=== PATIENT | female | born 1980 | race Caucasian/White ===

== ENCOUNTER 2019-05-30 12:29 | Outpatient (CLI) | payer OTHER, SELFPAY ==
[2019-05-30 12:52] LABS: Basophils Absolute Auto 0.1 K/mm3 (0.0-0.1); Basophils Percent Auto 0.4 % (0.2-1.2); Eosinophils Absolute Auto 0.2 K/mm3 (0-0.3); Eosinophils Percent Auto 1.4 % (0-4.4); Hematocrit 39.5 % (37.0-47.0); Hemoglobin 12.5 g/dL (12.0-15.0); Immature Granulocyte Absolute 0.03 K/mm3 (0.00-0.031); Immature Granulocyte Percent A 0.2 % (0-0.5); Lymphocytes Absolute Auto 3.16 K/mm3 (0.9-3.2); Lymphocytes Percent Auto 25.2 % (18.3-44.2); Mean Corpuscular HGB Conc 31.6 g/dl (32-36); Mean Corpuscular Hemoglobin 28.5 pg (26-34); Mean Platelet Volume 8.8 fl (7.4-10.4); Monocytes Absolute Auto 0.7 K/mm3 (0.1-0.6); Monocytes Percent Auto 5.7 % (2.6-8.5); Neutrophils Absolute Auto 8.4 K/mm3 (1.3-6.7); Neutrophils Percent Auto 67.1 % (45.5-73.1); Platelet Count Result 696 k/mm3 (150-375); Red Blood Count 4.39 M/mm3 (4.2-5.4); Red Cell Distribution Width 14.6 % (11.5-14.5); White Blood Count 12.5 K/mm3 (4.5-10.0)
[2019-05-30 12:55] LABS: Blood Urea Nitrogen 12 mg/dL (8-26); Carbon Dioxide 28 mmol/L (22-30); Chloride 106 mmol/L (98-109); Estimated Glomerular Filt Rate > 60; Glucose 101 mg/dL (70-105); Potassium 3.8 mmol/L (3.5-4.9); Sodium 140 mmol/L (138-146)
[2019-05-30 16:57] LABS: Alanine Aminotransferase 13 U/L (4-35); Alkaline Phosphatase 113 U/L (38-126); Aspartate Amino Transferase 16 U/L (14-36); Bilirubin,Total 0.3 mg/dL (0.2-1.3); Blood Urea Nitrogen 13 mg/dL (7-17); Calcium 9.4 mg/dL (8.4-10.2); Carbon Dioxide 25 mmol/L (22-30); Chloride 105 mmol/L (98-107); Estimated Glomerular Filt Rate > 60; Glucose 101 mg/dL (65-105); Potassium 4.3 mmol/L (3.4-5.0); Sodium 139 mmol/L (137-145)
== END 2019-05-30 12:30 | disposition home or self-care (01) ==
PROVIDERS: PCP Family Medicine; Visit Provider Internal Medicine Hematology & Oncology
DX: R79.89 Other specified abnormal findings of blood chemistry (principal); Z90.81 Acquired absence of spleen
CPT/HCPCS: 36415; 80048; 80053; 85025

== ENCOUNTER 2019-08-23 08:35 | Outpatient (CLI) | payer OTHER, SELFPAY ==
[2019-08-23 08:49] LABS: Basophils Absolute Auto 0.1 K/mm3 (0.0-0.1); Basophils Percent Auto 0.6 % (0.2-1.2); Eosinophils Absolute Auto 0.2 K/mm3 (0-0.3); Eosinophils Percent Auto 1.8 % (0-4.4); Hematocrit 41.5 % (37.0-47.0); Hemoglobin 13.2 g/dL (12.0-15.0); Immature Granulocyte Absolute 0.03 K/mm3 (0.00-0.031); Immature Granulocyte Percent A 0.3 % (0-0.5); Lymphocytes Absolute Auto 3.64 K/mm3 (0.9-3.2); Lymphocytes Percent Auto 34.8 % (18.3-44.2); Mean Corpuscular HGB Conc 31.8 g/dl (32-36); Mean Corpuscular Hemoglobin 28.4 pg (26-34); Mean Corpuscular Volume 89.2 fl (80-100); Monocytes Absolute Auto 1.1 K/mm3 (0.1-0.6); Neutrophils Absolute Auto 5.5 K/mm3 (1.3-6.7); Neutrophils Percent Auto 52.5 % (45.5-73.1); Platelet Count Result 653 k/mm3 (150-375); Red Blood Count 4.65 M/mm3 (4.2-5.4); Red Cell Distribution Width 14.7 % (11.5-14.5); White Blood Count 10.5 K/mm3 (4.5-10.0)
== END 2019-08-23 08:36 | disposition home or self-care (01) ==
PROVIDERS: PCP Family Medicine; Visit Provider Internal Medicine Hematology & Oncology
DX: D69.3 Immune thrombocytopenic purpura (principal)
CPT/HCPCS: 36415; 85025

== ENCOUNTER 2019-08-26 15:54 | Outpatient (CLI) | payer OTHER, SELFPAY ==
--- NOTE | ~2019-08-26 | MR_ITS ---
EXAMINATION: MR brain/brain stem wo/w con EXAM DATE: 08/26/2019 16:47 INDICATION: Frontal headaches, migraines with aura. TECHNIQUE: Magnetic resonance imaging (MRI) of the brain/brain stem obtained without contrast. Sagit ronda T1, axial diffusion, gradient echo (T2*), T1, T2, FLAIR sequences obtained. Patient was then inj ected with 15 cc intravenous Multihance contrast. Axial and coronal postcontrast T1 weighted sequence s obtained. There is no prior study for comparison. FINDINGS: There are no areas of restricted diffusion to suggest acute infarction. There is no acute hemorrhage seen on the T2*, a hemosiderin sensitive sequence. No intraparenchymal brain mass. The ve ntricles are normal in size. There are no extra-axial collections. Flow voids are seen in the cereb ral arteries on the T2-weighted sequences consistent with their expected patency. The orbits are unr emarkable. Soft tissue is unremarkable. There are no areas of abnormal enhancement on the postcont rast images. IMPRESSION: 1. Normal brain MRI examination. Reviewed, dictated and finalized at location A.
[2019-08-26 16:30] LABS: Estimated Glomerular Filt Rate 55
== END 2019-08-26 15:55 | disposition home or self-care (01) ==
PROVIDERS: PCP Family Medicine; Visit Provider Family Medicine
DX: R51 Headache (principal); R79.89 Other specified abnormal findings of blood chemistry
CPT/HCPCS: 36415; 70553; A9577

== ENCOUNTER 2019-09-03 09:17 | Outpatient (CLI) | payer OTHER, SELFPAY ==
[2019-09-03 09:37] LABS: Basophils Absolute Auto 0.1 K/mm3 (0.0-0.1); Basophils Percent Auto 0.7 % (0.2-1.2); Eosinophils Absolute Auto 0.1 K/mm3 (0-0.3); Eosinophils Percent Auto 1.7 % (0-4.4); Hematocrit 40.5 % (37.0-47.0); Hemoglobin 12.9 g/dL (12.0-15.0); Immature Granulocyte Absolute 0.01 K/mm3 (0.00-0.031); Immature Granulocyte Percent A 0.1 % (0-0.5); Lymphocytes Absolute Auto 3.07 K/mm3 (0.9-3.2); Lymphocytes Percent Auto 42.8 % (18.3-44.2); Mean Corpuscular HGB Conc 31.9 g/dl (32-36); Mean Corpuscular Hemoglobin 28.9 pg (26-34); Mean Corpuscular Volume 90.8 fl (80-100); Monocytes Absolute Auto 0.6 K/mm3 (0.1-0.6); Monocytes Percent Auto 8.9 % (2.6-8.5); Neutrophils Absolute Auto 3.3 K/mm3 (1.3-6.7); Neutrophils Percent Auto 45.8 % (45.5-73.1); Nucleated Red Blood Cells Perc 0.3 % (0.0-0.2); Platelet Count Result 640 k/mm3 (150-375); Red Blood Count 4.46 M/mm3 (4.2-5.4); Red Cell Distribution Width 14.6 % (11.5-14.5); White Blood Count 7.2 K/mm3 (4.5-10.0)
[2019-09-03 09:40] LABS: Blood Urea Nitrogen 10 mg/dL (8-26); Carbon Dioxide 24 mmol/L (22-30); Chloride 104 mmol/L (98-109); Estimated Glomerular Filt Rate > 60; Glucose 103 mg/dL (70-105); Potassium 4.2 mmol/L (3.5-4.9); Sodium 139 mmol/L (138-146)
[2019-09-03 12:06] LABS: Alanine Aminotransferase 18 U/L (4-35); Albumin Level 4.2 g/dL (3.5-5.1); Alkaline Phosphatase 91 U/L (38-126); Aspartate Amino Transferase 25 U/L (14-36); Bilirubin,Total 0.4 mg/dL (0.2-1.3); Blood Urea Nitrogen 11 mg/dL (7-17); Calcium 9.8 mg/dL (8.4-10.2); Carbon Dioxide 25 mmol/L (22-30); Chloride 105 mmol/L (98-107); Estimated Glomerular Filt Rate > 60; Glucose 108 mg/dL (65-105); Potassium 4.7 mmol/L (3.4-5.0); Sodium 137 mmol/L (137-145)
== END 2019-09-03 09:18 | disposition home or self-care (01) ==
PROVIDERS: PCP Family Medicine; Visit Provider Internal Medicine Hematology & Oncology
DX: R79.89 Other specified abnormal findings of blood chemistry (principal); Z90.81 Acquired absence of spleen
CPT/HCPCS: 36415; 80048; 80053; 85025

== ENCOUNTER 2019-09-30 09:50 | Outpatient (CLI) | payer OTHER, SELFPAY ==
[2019-09-30 10:02] LABS: Basophils Percent Auto 0.4 % (0.2-1.2); Eosinophils Absolute Auto 0.2 K/mm3 (0-0.3); Eosinophils Percent Auto 1.7 % (0-4.4); Immature Granulocyte Absolute 0.02 K/mm3 (0.00-0.031); Immature Granulocyte Percent A 0.2 % (0-0.5); Lymphocytes Absolute Auto 3.55 K/mm3 (0.9-3.2); Lymphocytes Percent Auto 38.6 % (18.3-44.2); Mean Corpuscular HGB Conc 32.5 g/dl (32-36); Mean Corpuscular Volume 92.2 fl (80-100); Monocytes Absolute Auto 0.7 K/mm3 (0.1-0.6); Monocytes Percent Auto 7.3 % (2.6-8.5); Neutrophils Absolute Auto 4.8 K/mm3 (1.3-6.7); Neutrophils Percent Auto 51.8 % (45.5-73.1); Nucleated Red Blood Cells Perc 0.2 % (0.0-0.2); Platelet Count Result 669 k/mm3 (150-375); Red Blood Count 4.34 M/mm3 (4.2-5.4); White Blood Count 9.2 K/mm3 (4.5-10.0)
== END 2019-09-30 09:51 | disposition home or self-care (01) ==
PROVIDERS: PCP Family Medicine; Visit Provider Internal Medicine Hematology & Oncology
DX: D69.3 Immune thrombocytopenic purpura (principal)
CPT/HCPCS: 36415; 85025

== ENCOUNTER 2019-10-17 09:09 | Outpatient (CLI) | payer OTHER, SELFPAY ==
[2019-10-17 09:29] LABS: Hematocrit 39.8 % (37.0-47.0); Hemoglobin 13.2 g/dL (12.0-15.0); Mean Corpuscular HGB Conc 33.2 g/dl (32-36); Mean Corpuscular Hemoglobin 31.4 pg (26-34); Mean Corpuscular Volume 94.8 fl (80-100); Mean Platelet Volume 8.8 fl (7.4-10.4); Platelet Count Result 545 k/mm3 (150-375); Red Cell Distribution Width 18.7 % (11.5-14.5); White Blood Count 9.9 K/mm3 (4.5-10.0)
== END 2019-10-17 09:10 | disposition home or self-care (01) ==
PROVIDERS: PCP Family Medicine; Visit Provider Internal Medicine Hematology & Oncology
DX: D47.3 Essential (hemorrhagic) thrombocythemia (principal); Z90.81 Acquired absence of spleen
CPT/HCPCS: 36415; 85027

== ENCOUNTER 2019-10-30 11:16 | Outpatient (CLI) | payer OTHER, SELFPAY ==
[2019-10-30 11:31] LABS: Basophils Percent Auto 0.4 % (0.2-1.2); Eosinophils Absolute Auto 0.1 K/mm3 (0-0.3); Eosinophils Percent Auto 1.2 % (0-4.4); Hematocrit 40.5 % (37.0-47.0); Hemoglobin 13.5 g/dL (12.0-15.0); Immature Granulocyte Absolute 0.01 K/mm3 (0.00-0.031); Immature Granulocyte Percent A 0.1 % (0-0.5); Lymphocytes Percent Auto 49.4 % (18.3-44.2); Mean Corpuscular HGB Conc 33.3 g/dl (32-36); Mean Corpuscular Hemoglobin 31.8 pg (26-34); Mean Corpuscular Volume 95.3 fl (80-100); Mean Platelet Volume 8.8 fl (7.4-10.4); Monocytes Absolute Auto 0.6 K/mm3 (0.1-0.6); Monocytes Percent Auto 8.8 % (2.6-8.5); Neutrophils Absolute Auto 2.9 K/mm3 (1.3-6.7); Neutrophils Percent Auto 40.1 % (45.5-73.1); Platelet Count Result 565 k/mm3 (150-375); Red Blood Count 4.25 M/mm3 (4.2-5.4); Red Cell Distribution Width 18.2 % (11.5-14.5); White Blood Count 7.3 K/mm3 (4.5-10.0)
== END 2019-10-30 11:17 | disposition home or self-care (01) ==
LOC: ANHLAB 11:17
PROVIDERS: PCP Family Medicine; Visit Provider Internal Medicine Hematology & Oncology
DX: D69.3 Immune thrombocytopenic purpura (principal)
CPT/HCPCS: 36415; 85025

== ENCOUNTER 2019-11-12 12:46 | Outpatient (CLI) | payer OTHER, SELFPAY ==
[2019-11-12 13:04] LABS: Basophils Percent Auto 0.4 % (0.2-1.2); Eosinophils Absolute Auto 0.1 K/mm3 (0-0.3); Eosinophils Percent Auto 0.9 % (0-4.4); Hematocrit 38.8 % (37.0-47.0); Hemoglobin 12.9 g/dL (12.0-15.0); Immature Granulocyte Absolute 0.02 K/mm3 (0.00-0.031); Immature Granulocyte Percent A 0.3 % (0-0.5); Lymphocytes Absolute Auto 3.58 K/mm3 (0.9-3.2); Lymphocytes Percent Auto 47.9 % (18.3-44.2); Mean Corpuscular HGB Conc 33.2 g/dl (32-36); Mean Corpuscular Hemoglobin 31.9 pg (26-34); Mean Platelet Volume 9.1 fl (7.4-10.4); Monocytes Absolute Auto 0.6 K/mm3 (0.1-0.6); Monocytes Percent Auto 7.9 % (2.6-8.5); Neutrophils Absolute Auto 3.2 K/mm3 (1.3-6.7); Neutrophils Percent Auto 42.6 % (45.5-73.1); Nucleated Red Blood Cells Absolute Auto 0.1 K/mm3 (0.0-0.012); Nucleated Red Blood Cells Perc 0.8 % (0.0-0.2); Platelet Count Result 502 k/mm3 (150-375); Red Blood Count 4.04 M/mm3 (4.2-5.4); Red Cell Distribution Width 17.2 % (11.5-14.5); White Blood Count 7.5 K/mm3 (4.5-10.0)
== END 2019-11-12 12:47 | disposition home or self-care (01) ==
LOC: ANHLAB 12:47
PROVIDERS: PCP Family Medicine; Visit Provider Internal Medicine Hematology & Oncology
DX: D69.3 Immune thrombocytopenic purpura (principal)
CPT/HCPCS: 36415; 85025

== ENCOUNTER 2019-12-23 11:01 | Outpatient (CLI) | payer OTHER, SELFPAY ==
[2019-12-23 11:21] LABS: Hematocrit 40.6 % (37.0-47.0); Hemoglobin 13.5 g/dL (12.0-15.0); Mean Corpuscular HGB Conc 33.3 g/dl (32-36); Mean Corpuscular Hemoglobin 33.6 pg (26-34); Mean Platelet Volume 8.7 fl (7.4-10.4); Platelet Count Result 539 k/mm3 (150-375); Red Blood Count 4.02 M/mm3 (4.2-5.4); Red Cell Distribution Width 15.4 % (11.5-14.5); White Blood Count 6.9 K/mm3 (4.5-10.0)
== END 2019-12-23 11:02 | disposition home or self-care (01) ==
LOC: ANHLAB 11:03
PROVIDERS: PCP Family Medicine; Visit Provider Internal Medicine Hematology & Oncology
DX: D47.3 Essential (hemorrhagic) thrombocythemia (principal); Z90.81 Acquired absence of spleen
CPT/HCPCS: 36415; 85027

== ENCOUNTER 2020-01-31 10:51 | Outpatient (CLI) | payer OTHER, SELFPAY ==
[2020-01-31 11:04] LABS: Basophils Absolute Auto 0.1 K/mm3 (0.0-0.1); Basophils Percent Auto 0.7 % (0.2-1.2); Eosinophils Absolute Auto 0.1 K/mm3 (0-0.3); Eosinophils Percent Auto 1.3 % (0-4.4); Hematocrit 39.5 % (37.0-47.0); Hemoglobin 13.1 g/dL (12.0-15.0); Immature Granulocyte Absolute 0.02 K/mm3 (0.00-0.031); Immature Granulocyte Percent A 0.3 % (0-0.5); Lymphocytes Percent Auto 42.4 % (18.3-44.2); Mean Corpuscular HGB Conc 33.2 g/dl (32-36); Mean Corpuscular Volume 102.6 fl (80-100); Monocytes Absolute Auto 0.5 K/mm3 (0.1-0.6); Monocytes Percent Auto 7.2 % (2.6-8.5); Neutrophils Absolute Auto 3.4 K/mm3 (1.3-6.7); Neutrophils Percent Auto 48.1 % (45.5-73.1); Platelet Count Result 591 k/mm3 (150-375); Red Blood Count 3.85 M/mm3 (4.2-5.4); Red Cell Distribution Width 14.1 % (11.5-14.5); White Blood Count 7.1 K/mm3 (4.5-10.0)
[2020-01-31 11:08] LABS: Blood Urea Nitrogen 9 mg/dL (8-26); Carbon Dioxide 24 mmol/L (22-30); Chloride 103 mmol/L (98-109); Estimated Glomerular Filt Rate 15; Glucose 124 mg/dL (70-105); Potassium 3.8 mmol/L (3.5-4.9); Sodium 140 mmol/L (138-146)
== END 2020-01-31 10:52 | disposition home or self-care (01) ==
LOC: ANHLAB 10:53
PROVIDERS: PCP Family Medicine; Visit Provider Internal Medicine Hematology & Oncology
DX: D47.3 Essential (hemorrhagic) thrombocythemia (principal); Z90.81 Acquired absence of spleen
CPT/HCPCS: 36415; 80048; 85025

== ENCOUNTER 2020-05-01 08:28 | Outpatient (CLI) | payer OTHER, SELFPAY ==
[2020-05-01 08:48] LABS: Hematocrit 38.7 % (37.0-47.0); Hemoglobin 12.9 g/dL (12.0-15.0); Mean Corpuscular HGB Conc 33.3 g/dl (32-36); Mean Corpuscular Hemoglobin 36.4 pg (26-34); Mean Corpuscular Volume 109.3 fl (80-100); Mean Platelet Volume 8.8 fl (7.4-10.4); Platelet Count Result 537 k/mm3 (150-375); Red Blood Count 3.54 M/mm3 (4.2-5.4); Red Cell Distribution Width 15.1 % (11.5-14.5); White Blood Count 7.9 K/mm3 (4.5-10.0)
== END 2020-05-01 08:29 | disposition home or self-care (01) ==
LOC: ANHLAB 08:30
PROVIDERS: PCP Family Medicine; Visit Provider Internal Medicine Hematology & Oncology
DX: D47.3 Essential (hemorrhagic) thrombocythemia (principal); Z90.81 Acquired absence of spleen
CPT/HCPCS: 36415; 85027

== ENCOUNTER 2020-05-01 09:26 | Outpatient (CLI) | payer OTHER, SELFPAY ==
--- NOTE | ~2020-05-01 | MM_ITS ---
EXAMINATION: MM screening [facility] BI w addison HISTORY: Screening mammogram TECHNIQUE: Craniocaudal and mediolateral oblique 3-D tomosynthesis images were obtained and synthetic 2-D images were generated. CAD analysis was submitted and interpreted. COMPARISON: No prior mammogram is available for comparison at this institution. BREAST PARENCHYMAL COMPOSITION: There are scattered areas of fibroglandular density. FINDINGS: There is no evidence of suspicious mass, calcification, or architectural distortion to sugg est malignancy in either breast. There has been no suspicious interval change. IMPRESSION: 1. No mammographic evidence of malignancy. 2. Recommend routine screening mammography in one year. BI-RADS Category 1: Negative Reviewed, dictated and finalized at location A. D YEAST SUPERVISOR
== END 2020-05-01 09:27 | disposition home or self-care (01) ==
PROVIDERS: PCP Family Medicine; Visit Provider Nurse Practitioner
DX: Z12.31 Encounter for screening mammogram for malignant neoplasm of breast (principal)
CPT/HCPCS: 77063; 77067

== ENCOUNTER 2020-08-28 09:11 | Outpatient (CLI) | payer OTHER, SELFPAY ==
[2020-08-28 09:25] LABS: Basophils Percent Auto 0.6 % (0.2-1.2); Eosinophils Absolute Auto 0.1 K/mm3 (0-0.3); Eosinophils Percent Auto 0.8 % (0-4.4); Hematocrit 38.5 % (37.0-47.0); Immature Granulocyte Absolute 0.01 K/mm3 (0.00-0.031); Immature Granulocyte Percent A 0.2 % (0-0.5); Lymphocytes Absolute Auto 3.04 K/mm3 (0.9-3.2); Lymphocytes Percent Auto 46.6 % (18.3-44.2); Mean Corpuscular HGB Conc 33.8 g/dl (32-36); Mean Corpuscular Hemoglobin 35.1 pg (26-34); Mean Corpuscular Volume 104.1 fl (80-100); Mean Platelet Volume 8.7 fl (7.4-10.4); Monocytes Absolute Auto 0.6 K/mm3 (0.1-0.6); Monocytes Percent Auto 9.4 % (2.6-8.5); Neutrophils Absolute Auto 2.8 K/mm3 (1.3-6.7); Neutrophils Percent Auto 42.4 % (45.5-73.1); Platelet Count Result 591 k/mm3 (150-375); Red Cell Distribution Width 11.8 % (11.5-14.5); White Blood Count 6.5 K/mm3 (4.5-10.0)
[2020-08-28 09:29] LABS: Blood Urea Nitrogen 8 mg/dL (8-26); Carbon Dioxide 23 mmol/L (22-30); Chloride 104 mmol/L (98-109); Estimated Glomerular Filt Rate 33; Glucose 143 mg/dL (70-105); Potassium 3.7 mmol/L (3.5-4.9); Sodium 141 mmol/L (138-146)
== END 2020-08-28 09:12 | disposition home or self-care (01) ==
LOC: ANHLAB 09:14
PROVIDERS: PCP Family Medicine; Visit Provider Internal Medicine Hematology & Oncology
DX: D47.3 Essential (hemorrhagic) thrombocythemia (principal); Z90.81 Acquired absence of spleen
CPT/HCPCS: 36415; 80048; 85025

== ENCOUNTER 2021-03-10 09:42 | Outpatient (CLI) | payer BC, SELFPAY ==
[2021-03-10 10:00] LABS: Basophils Absolute Auto 0.1 K/mm3 (0.0-0.1); Basophils Percent Auto 0.9 % (0.2-1.2); Eosinophils Absolute Auto 0.1 K/mm3 (0-0.3); Eosinophils Percent Auto 2.2 % (0-4.4); Hematocrit 36.3 % (37.0-47.0); Hemoglobin 11.8 g/dL (12.0-15.0); Immature Granulocyte Absolute 0.01 K/mm3 (0.00-0.031); Immature Granulocyte Percent A 0.2 % (0-0.5); Lymphocytes Absolute Auto 2.58 K/mm3 (0.9-3.2); Lymphocytes Percent Auto 47.9 % (18.3-44.2); Mean Corpuscular HGB Conc 32.5 g/dl (32-36); Mean Corpuscular Hemoglobin 34.5 pg (26-34); Mean Corpuscular Volume 106.1 fl (80-100); Mean Platelet Volume 8.8 fl (7.4-10.4); Monocytes Absolute Auto 0.5 K/mm3 (0.1-0.6); Monocytes Percent Auto 9.5 % (2.6-8.5); Neutrophils Absolute Auto 2.1 K/mm3 (1.3-6.7); Neutrophils Percent Auto 39.3 % (45.5-73.1); Platelet Count Result 581 k/mm3 (150-375); Red Blood Count 3.42 M/mm3 (4.2-5.4); Red Cell Distribution Width 13.3 % (11.5-14.5); White Blood Count 5.4 K/mm3 (4.5-10.0)
[2021-03-10 10:04] LABS: Blood Urea Nitrogen 9 mg/dL (8-26); Carbon Dioxide 27 mmol/L (22-30); Chloride 103 mmol/L (98-109); Estimated Glomerular Filt Rate > 60; Glucose 95 mg/dL (70-105); Potassium 3.7 mmol/L (3.5-4.9); Sodium 143 mmol/L (138-146)
== END 2021-03-10 09:43 | disposition home or self-care (01) ==
PROVIDERS: PCP Family Medicine; Visit Provider Internal Medicine Hematology & Oncology
DX: D75.838 Other thrombocytosis (principal); Z90.81 Acquired absence of spleen
CPT/HCPCS: 36415; 80048; 85025

== ENCOUNTER 2021-09-15 10:28 | Outpatient (CLI) | payer BC, SELFPAY ==
[2021-09-15 10:56] LABS: Basophils Percent Auto 0.4 % (0.2-1.2); Eosinophils Absolute Auto 0.1 K/mm3 (0-0.3); Eosinophils Percent Auto 1.1 % (0-4.4); Hematocrit 40.8 % (37.0-47.0); Hemoglobin 13.3 g/dL (12.0-15.0); Immature Granulocyte Absolute 0.01 K/mm3 (0.00-0.031); Immature Granulocyte Percent A 0.1 % (0-0.5); Lymphocytes Absolute Auto 2.65 K/mm3 (0.9-3.2); Lymphocytes Percent Auto 37.5 % (18.3-44.2); Mean Corpuscular HGB Conc 32.6 g/dl (32-36); Mean Corpuscular Hemoglobin 33.4 pg (26-34); Mean Corpuscular Volume 102.5 fl (80-100); Mean Platelet Volume 9.1 fl (7.4-10.4); Monocytes Absolute Auto 0.5 K/mm3 (0.1-0.6); Monocytes Percent Auto 7.6 % (2.6-8.5); Neutrophils Absolute Auto 3.8 K/mm3 (1.3-6.7); Neutrophils Percent Auto 53.3 % (45.5-73.1); Platelet Count Result 547 k/mm3 (150-375); Red Blood Count 3.98 M/mm3 (4.2-5.4); Red Cell Distribution Width 14.1 % (11.5-14.5); White Blood Count 7.1 K/mm3 (4.5-10.0)
[2021-09-15 11:01] LABS: Blood Urea Nitrogen 16 mg/dL (8-26); Carbon Dioxide 25 mmol/L (22-30); Chloride 108 mmol/L (98-109); Estimated Glomerular Filt Rate > 60; Glucose 83 mg/dL (70-105); Ionized Calcium (POC) 1.19 mmol/L (1.11-1.31); Sodium 141 mmol/L (138-146)
== END 2021-09-15 10:29 | disposition home or self-care (01) ==
LOC: ANHLAB 10:30
PROVIDERS: PCP Family Medicine; Visit Provider Internal Medicine Hematology & Oncology
DX: D69.3 Immune thrombocytopenic purpura (principal); D75.838 Other thrombocytosis; Z90.81 Acquired absence of spleen; D69.49 Other primary thrombocytopenia
CPT/HCPCS: 36415; 80047; 85025

== ENCOUNTER 2021-12-27 08:51 | Outpatient (CLI) | payer BC, SELFPAY ==
--- NOTE | ~2021-12-27 | MM_ITS ---
EXAMINATION: MM screening [facility] BI w addison HISTORY: Screening TECHNIQUE: Craniocaudal and mediolateral oblique 3-D tomosynthesis images were obtained and synthetic 2-D images were generated. CAD analysis was submitted and interpreted. COMPARISON: 05/01/2020 BREAST PARENCHYMAL COMPOSITION: There are scattered areas of fibroglandular density. FINDINGS: There is no evidence of suspicious mass, calcification, or architectural distortion to sugg est malignancy in either breast. There has been no suspicious interval change. IMPRESSION: 1. No mammographic evidence of malignancy. 2. Recommend routine screening mammography in one year. BI-RADS Category 1: Negative Reviewed, dictated and finalized at location A.
== END 2021-12-27 08:52 | disposition home or self-care (01) ==
PROVIDERS: PCP Family Medicine; Visit Provider Nurse Practitioner
DX: Z12.31 Encounter for screening mammogram for malignant neoplasm of breast (principal)
CPT/HCPCS: 77063; 77067

== ENCOUNTER 2022-03-10 12:51 | Outpatient (CLI) | payer BC, SELFPAY ==
[2022-03-10 13:02] LABS: Basophils Percent Auto 0.4 % (0.2-1.2); Eosinophils Absolute Auto 0.2 K/mm3 (0-0.3); Eosinophils Percent Auto 2.9 % (0-4.4); Hemoglobin 12.5 g/dL (12.0-15.0); Immature Granulocyte Absolute 0.02 K/mm3 (0.00-0.031); Immature Granulocyte Percent A 0.3 % (0-0.5); Lymphocytes Percent Auto 33.4 % (18.3-44.2); Mean Corpuscular HGB Conc 32.9 g/dl (32-36); Mean Corpuscular Hemoglobin 30.5 pg (26-34); Mean Corpuscular Volume 92.7 fl (80-100); Monocytes Absolute Auto 0.7 K/mm3 (0.1-0.6); Monocytes Percent Auto 10.6 % (2.6-8.5); Neutrophils Absolute Auto 3.6 K/mm3 (1.3-6.7); Neutrophils Percent Auto 52.4 % (45.5-73.1); Platelet Count Result 595 k/mm3 (150-375); Red Cell Distribution Width 13.2 % (11.5-14.5); White Blood Count 6.9 K/mm3 (4.5-10.0)
[2022-03-10 13:08] LABS: Blood Urea Nitrogen 11 mg/dL (8-26); Carbon Dioxide 27 mmol/L (22-30); Chloride 104 mmol/L (98-109); Estimated Glomerular Filt Rate > 60; Glucose 118 mg/dL (70-105); Ionized Calcium (POC) 1.25 mmol/L (1.11-1.31); Potassium 3.6 mmol/L (3.5-4.9); Sodium 140 mmol/L (138-146)
== END 2022-03-10 12:52 | disposition home or self-care (01) ==
LOC: ANHLAB 12:53
PROVIDERS: PCP Family Medicine; Visit Provider Internal Medicine Hematology & Oncology
DX: D75.838 Other thrombocytosis (principal); D69.3 Immune thrombocytopenic purpura; Z90.81 Acquired absence of spleen; D69.49 Other primary thrombocytopenia
CPT/HCPCS: 36415; 80047; 85025

== ENCOUNTER 2022-09-08 11:04 | Outpatient (CLI) | payer BC, SELFPAY ==
[2022-09-08 11:14] LABS: Basophils Absolute Auto 0.1 K/mm3 (0.0-0.1); Basophils Percent Auto 0.6 % (0.2-1.2); Eosinophils Absolute Auto 0.2 K/mm3 (0-0.3); Eosinophils Percent Auto 2.3 % (0-4.4); Hematocrit 38.6 % (37.0-47.0); Hemoglobin 12.9 g/dL (12.0-15.0); Immature Granulocyte Absolute 0.01 K/mm3 (0.00-0.031); Immature Granulocyte Percent A 0.1 % (0-0.5); Lymphocytes Absolute Auto 3.54 K/mm3 (0.9-3.2); Lymphocytes Percent Auto 40.4 % (18.3-44.2); Mean Corpuscular HGB Conc 33.4 g/dl (32-36); Mean Corpuscular Hemoglobin 30.7 pg (26-34); Mean Corpuscular Volume 91.9 fl (80-100); Mean Platelet Volume 8.9 fl (7.4-10.4); Monocytes Absolute Auto 0.7 K/mm3 (0.1-0.6); Monocytes Percent Auto 8.2 % (2.6-8.5); Neutrophils Absolute Auto 4.3 K/mm3 (1.3-6.7); Neutrophils Percent Auto 48.4 % (45.5-73.1); Platelet Count Result 604 k/mm3 (150-375); Red Cell Distribution Width 12.9 % (11.5-14.5); White Blood Count 8.8 K/mm3 (4.5-10.0)
[2022-09-08 11:19] LABS: Blood Urea Nitrogen 14 mg/dL (8-26); Carbon Dioxide 22 mmol/L (22-30); Chloride 106 mmol/L (98-109); Estimated Glomerular Filt Rate > 60; Glucose 108 mg/dL (70-105); Ionized Calcium (POC) 1.18 mmol/L (1.11-1.31); Potassium 3.8 mmol/L (3.5-4.9); Sodium 139 mmol/L (138-146)
== END 2022-09-08 11:05 | disposition home or self-care (01) ==
LOC: ANHLAB 11:05
PROVIDERS: PCP Family Medicine; Visit Provider Internal Medicine Hematology & Oncology
DX: D69.3 Immune thrombocytopenic purpura (principal)
CPT/HCPCS: 36415; 80047; 85025

== ENCOUNTER 2023-03-09 09:43 | Outpatient (CLI) | payer BC, SELFPAY ==
[2023-03-09 09:58] LABS: Basophils Absolute Auto 0.1 K/mm3 (0.0-0.1); Basophils Percent Auto 0.6 % (0.2-1.2); Eosinophils Absolute Auto 0.1 K/mm3 (0-0.3); Eosinophils Percent Auto 1.5 % (0-4.4); Hematocrit 41.4 % (37.0-47.0); Hemoglobin 13.5 g/dL (12.0-15.0); Immature Granulocyte Absolute 0.02 K/mm3 (0.00-0.031); Immature Granulocyte Percent A 0.2 % (0-0.5); Lymphocytes Absolute Auto 2.73 K/mm3 (0.9-3.2); Mean Corpuscular HGB Conc 32.6 g/dl (32-36); Mean Corpuscular Hemoglobin 29.9 pg (26-34); Mean Corpuscular Volume 91.8 fl (80-100); Monocytes Absolute Auto 0.8 K/mm3 (0.1-0.6); Monocytes Percent Auto 10.2 % (2.6-8.5); Neutrophils Absolute Auto 4.3 K/mm3 (1.3-6.7); Neutrophils Percent Auto 53.5 % (45.5-73.1); Platelet Count Result 684 k/mm3 (150-375); Red Blood Count 4.51 M/mm3 (4.2-5.4); Red Cell Distribution Width 13.4 % (11.5-14.5)
[2023-03-09 10:03] LABS: Blood Urea Nitrogen 11 mg/dL (8-26); Carbon Dioxide 22 mmol/L (22-30); Chloride 104 mmol/L (98-109); Estimated Glomerular Filt Rate > 60; Glucose 124 mg/dL (70-105); Ionized Calcium (POC) 1.15 mmol/L (1.11-1.31); Potassium 3.7 mmol/L (3.5-4.9); Sodium 140 mmol/L (138-146)
== END 2023-03-09 09:44 | disposition home or self-care (01) ==
LOC: ANHLAB 09:47
PROVIDERS: PCP Family Medicine; Visit Provider Internal Medicine Hematology & Oncology
DX: D75.838 Other thrombocytosis (principal); Z90.81 Acquired absence of spleen
CPT/HCPCS: 36415; 80047; 85025

== ENCOUNTER 2023-05-12 07:15 | Outpatient (CLI) | payer BC, SELFPAY ==
--- NOTE | ~2023-05-12 | MM_ITS ---
EXAMINATION: MM screening [facility] BI w addison HISTORY: Screening TECHNIQUE: Craniocaudal and mediolateral oblique 3-D tomosynthesis images were obtained and synthetic 2-D images were generated. CAD analysis was submitted and interpreted. COMPARISON: Comparison to multiple prior studies sequentially, with oldest reviewed study dated 02/17. BREAST PARENCHYMAL COMPOSITION: There are scattered areas of fibroglandular density. FINDINGS: There is no evidence of suspicious mass, calcification, or architectural distortion to sugg est malignancy in either breast. There has been no suspicious interval change. IMPRESSION: 1. No mammographic evidence of malignancy. 2. Recommend routine screening mammography in one year. BI-RADS Category 1: Negative Reviewed, dictated and finalized at location A. ET EDITOR
== END 2023-05-12 07:16 | disposition home or self-care (01) ==
LOC: ANHIMG 07:19
PROVIDERS: PCP Family Medicine; Visit Provider Obstetrics & Gynecology Gynecology
DX: Z12.31 Encounter for screening mammogram for malignant neoplasm of breast (principal)
CPT/HCPCS: 77063; 77067

== ENCOUNTER 2023-08-30 11:00 | Outpatient (CLI) | payer BC, SELFPAY ==
[2023-08-30 11:21] LABS: Basophils Percent Auto 0.4 % (0.2-1.2); Eosinophils Absolute Auto 0.1 K/mm3 (0-0.3); Eosinophils Percent Auto 1.4 % (0-4.4); Hematocrit 40.1 % (37.0-47.0); Hemoglobin 13.1 g/dL (12.0-15.0); Immature Granulocyte Absolute 0.01 K/mm3 (0.00-0.031); Immature Granulocyte Percent A 0.1 % (0-0.5); Lymphocytes Absolute Auto 3.46 K/mm3 (0.9-3.2); Lymphocytes Percent Auto 47.8 % (18.3-44.2); Mean Corpuscular HGB Conc 32.7 g/dl (32-36); Mean Corpuscular Hemoglobin 31.6 pg (26-34); Mean Corpuscular Volume 96.6 fl (80-100); Mean Platelet Volume 8.8 fl (7.4-10.4); Monocytes Absolute Auto 0.6 K/mm3 (0.1-0.6); Monocytes Percent Auto 7.7 % (2.6-8.5); Neutrophils Absolute Auto 3.1 K/mm3 (1.3-6.7); Neutrophils Percent Auto 42.6 % (45.5-73.1); Platelet Count Result 523 k/mm3 (150-375); Red Blood Count 4.15 M/mm3 (4.2-5.4); Red Cell Distribution Width 16.6 % (11.5-14.5); White Blood Count 7.2 K/mm3 (4.5-10.0)
[2023-08-30 11:27] LABS: Blood Urea Nitrogen 14 mg/dL (8-26); Carbon Dioxide 25 mmol/L (22-30); Chloride 103 mmol/L (98-109); Estimated Glomerular Filt Rate 16; Glucose 117 mg/dL (70-105); Ionized Calcium (POC) 1.22 mmol/L (1.11-1.31); Potassium 4.6 mmol/L (3.5-4.9); Sodium 138 mmol/L (138-146)
== END 2023-08-30 11:01 | disposition home or self-care (01) ==
LOC: ANHLAB 11:02
PROVIDERS: PCP Family Medicine; Visit Provider Internal Medicine Hematology & Oncology
DX: D69.49 Other primary thrombocytopenia (principal)
CPT/HCPCS: 36415; 80047; 85025

== ENCOUNTER 2024-02-24 10:19 | Outpatient (CLI) | payer BC, SELFPAY ==
--- NOTE | ~2024-02-24 | US_ITS ---
Pelvic ultrasound. Clinical History: Abnormal uterine bleeding Technique: Realtime transvaginal scanning of the pelvis was performed. Color flow Doppler and Doppler spectral analysis were performed. Findings: The uterus is anteverted. The endometrial stripe has a thickness of 6 mm. No focal mass is identified. There is a 1.0 x 0.6 x 1.1 cm cystic area in the myometrium adjacent endometrial stripe. Neither ovary seen. No other adnexal mass seen.. There is no evidence of free fluid in the cul de sac. Impression: 1.1 cm cystic area in the myometrium adjacent to the emergency stripe, which could reflect a necrotic fibroid or uterine cyst. This is of doubtful clinical significance overall given small size. Reviewed, dictated and finalized at [facility]. HOGGER OPERATOR Impression: 1.1 cm cystic area in the myometrium adjacent to the emergency stripe, which co uld reflect a necrotic fibroid or uterine cyst. This is of doubtful clinical si gnificance overall given small size.
== END 2024-02-24 10:20 | disposition home or self-care (01) ==
LOC: MICIMG 10:21
PROVIDERS: PCP Family Medicine; Visit Provider Nurse Practitioner
DX: N93.8 Other specified abnormal uterine and vaginal bleeding (principal)
CPT/HCPCS: 76830

== ENCOUNTER 2024-03-28 16:55 | Outpatient (CLI) | payer BC, SELFPAY ==
[2024-03-28 17:18] LABS: Hematocrit 40.7 % (37.0-47.0); Hemoglobin 13.5 g/dL (12.0-15.0); Mean Corpuscular HGB Conc 33.2 g/dl (32-36); Mean Corpuscular Hemoglobin 30.4 pg (26-34); Mean Corpuscular Volume 91.7 fl (80-100); Platelet Count Result 646 k/mm3 (150-375); Red Blood Count 4.44 M/mm3 (4.2-5.4); Red Cell Distribution Width 13.2 % (11.5-14.5); White Blood Count 8.5 K/mm3 (4.5-10.0)
[2024-03-28 17:28] LABS: Prothrombin Time 13.7 Seconds (11.1-14.7)
[2024-03-28 17:30] LABS: Partial Thromboplastin Time 28.1 Seconds (22.3-36.8)
== END 2024-03-28 16:56 | disposition home or self-care (01) ==
LOC: ANHLAB 16:58
PROVIDERS: PCP Family Medicine; Visit Provider Anesthesiology
DX: Z01.812 Encounter for preprocedural laboratory examination (principal); D69.3 Immune thrombocytopenic purpura
CPT/HCPCS: 36415; 85027; 85610; 85730

== ENCOUNTER 2024-04-01 00:09 | Day surgery (SDC) | payer BC, SELFPAY ==
[2024-03-25 12:49] VITALS: BMI 29.9
--- NOTE | 2024-03-25 14:48 | PC.NURSE ---
Report to the Outpatient Waiting Room, entrance under the green pavilion located off [facility], at time _0845AM on date 04/01/24 . Planned Procedure Time: _1045AM .? Time changes happen often and if your time is changed the preop area will call you the afternoon before. - You and your visitor will be asked to self-screen and do not enter if you have any COVID symptoms. Please call surgeon if you need to reschedule. - A mask is optional within the hospital at this time. Patients may have clear liquids (water, carbonated beverages, clear teas, apple juice) until 3 hours prior to surgery with a maximum of 20 ounces. - No food from midnight until time of surgery and no smoking. This includes no chewing gum, candy or mints. Take only the following medications with a SIP of water on the morning of surgery: _NONE DO NOT STOP ANY OF YOUR OTHER PRESCRIPTION MEDICATIONS PRIOR TO SURGERY EXCEPT THE FOLLOWING Medications to discontinue per physician NONE Date to take last dose Please no make-up, nail french, hairspray, perfume, deodorant, or body powder the day of surgery.? No jewelry (including any body piercings) or valuables the day of surgery, leave them at home.? Please take a shower or bath the night before, or the morning of, surgery with an antibacterial soap.? Wear comfortable, loose fitting clothing.? - Jewelry must be removed prior to entering the operating room.? Rings and piercings that are not removed may be cut off. - The hospital will not accept responsibility for valuables.? - Please leave all valuables, including medications, at home the day of surgery. If you are going home after surgery, a licensed goat driver must drive you home.? - NO public transportation without another adult if you receive anesthesia. - We recommend that an adult stay with you for 24 hours following discharge. - We also recommend that you do not drive, make important decision, drink alcoholic beverages, or take any drugs that were not prescribed by your health care provider for at least 24 hours after your discharge time. Follow any additional instructions given to you from your surgeon. Telephone instructions given to BRIANNE and asked if any additional questions and then verbalized understanding. Patient advised to call surgeon office or pre surgery nurse liaison [phone] if any additional questions.
--- NOTE | 2024-04-01 08:53 | WPDHPUPDATE1 ---
History and Physical Update Update Date/Time: 04/01/24 08:53 History and Physical has been reviewed, including an updated exam of the patient. There are NO changes in the patient's condition. Risks, benefits, and alternatives have been discussed and questions answered. Patient agrees to proceed with procedure.
--- NOTE | 2024-04-01 08:53 | PM.HPGS ---
History of Present Illness History of Present Illness Consent: Risks, benefits, and alternatives have been discussed and questions answered. Patient agrees to proceed with procedure. Chief complaint: menorrhagia Narrative: Chrystal Vera is a 44 year old female with frequent irregular periods. Patient with for bleeding episodes over 6 weeks. Pelvic ultrasound was basically normal with a small 1cm cystic area in the myometrium adjacent to the endometrial stripe. It was recommended to undergo D&C hysteroscopy for further evaluation. Due to her prior history of ablation Cytotec for 1 week prior was given. Risks of infection, bleeding, perforation, and possible pathology are reviewed. In addition risk of inability to enter the cavity due to prior ablation was reviewed. Patient voices understanding and agrees to proceed. Review of Systems Review of Systems: not repeated day of surgery; patient states no changes in status PMFSH Past Medical History Medical History (Updated 04/01/24 @ 08:57 by Mei Valenzuela MD) Status post hysteroscopy (normal spontaneous vaginal delivery) X3 Idiopathic thrombotic thrombocytopenic purpura 2017 Depression With anxiety Migraine Elevated platelet count Surgical History Surgical History (Updated 04/01/24 @ 08:57 by Mei Valenzuela MD) Status post hysteroscopic ablation of endometrium 2018 Status post splenectomy 2018 Status post tubal ligation 2016 History of D&C 2007 spontaneous Family History Family History Father Hypertension Family history of elevated blood lipids Sibling Family history of alcoholism Grandparent Acute myocardial infarction Cerebrovascular accident Family history of arthritis Other Family history of malignant neoplasm Social History Social History (Updated 10/08/21 @ 14:29 by Naomy Lamas [facility]) Smoking status: Never smoker Second hand tobacco smoke exposure: No Alcohol intake: current Drinks per week: 2 Substance use: never Substance use type: does not use Living arrangements: with family Occupation/Education: occupation Spiritual care concerns: No Meds Home Medications and Allergies Home Medications ?Medication ?Instructions ?Recorded ?Confirmed ?Type hydroxyurea 500 mg capsule 500 mg PO DAILY 10/30/19 03/25/24 History Allergies Allergy/AdvReac Type Severity Reaction Status Date / Time No Known Allergies Allergy Verified 10/08/21 14:25 Exam Const: General: healthy appearing and alert Orientation/consciousness: patient oriented x3 Resp: Effort & Inspection: normal respiratory effort : External Female Exam: normal external appearance Speculum Exam - Vagina: normal appearance of the vagina and normal vaginal discharge Speculum Exam - Cervix: normal appearance of the cervix Bimanual exam- vagina & uterus: uterine size normal and consistency normal Bimanual Exam- Adnexa, other: normal adnexae and No adnexal tenderness Neuro: General: patient oriented x3 Assessment and Plan Assessment and plan (1) Menorrhagia: Code(s): N92.0 - Excessive and frequent menstruation with regular cycle Status: Acute Assessment and Plan: Plan to proceed with D&C hysteroscopy
[2024-04-01] MEDS: ACETAMINOPHEN 500 MG TABLET 1000 MG PO (09:00)
[2024-04-01] MEDS: LACTATED RINGERS 1,000 ML 30 ML IV CONT (09:00)
[2024-04-01 09:25] VITALS: BP 117/86; PULSE 100; RESP 16; TEMP 36.3; O2SAT 97
[2024-04-01 09:30] LABS: BEDSIDEPREGUCG Negative (Negative)
--- NOTE | 2024-04-01 10:44 | WPDANESEPPF ---
Anes - Initial Pre Proc Eval Procedure: Operation Date: 04/01/24 10:45 Proposed Procedures p Hysteroscopy Dilation and Curettage - Mei Valenzuela MD Date/Time: 04/01/24 10:44 Surgeon: Mei Valenzuela MD Pre Op Diagnosis: menorrhagia Patient Data Age: 44 Gender: F Height: 1.65 m Weight: 79 kg Last Vital Signs Temp 97.4 F L 04/01/24 09:25 Pulse 100 04/01/24 09:25 Resp 16 04/01/24 09:25 BP 117/86 04/01/24 09:25 Pulse Ox 97 04/01/24 09:25 O2 Del Method Room Air 04/01/24 09:25 Allergies Allergy/AdvReac Type Severity Reaction Status Date / Time No Known Allergies Allergy Verified 10/08/21 14:25 Home Medications ?Medication ?Instructions ?Recorded ?Confirmed ?Type hydroxyurea 500 mg capsule 500 mg PO DAILY 10/30/19 03/25/24 History Laboratory Tests 04/01/24 09:25 POC Urine HCG, Qual Negative (Negative) Patient hx anesthesia problems: none Family hx anesthesia problems: none Results Review: All pre-operative results and documents have been reviewed as part of the pre-operative evaluation. [facility] Past Medical History Medical History Status post hysteroscopy (normal spontaneous vaginal delivery) X3 Idiopathic thrombotic thrombocytopenic purpura 2017 Depression With anxiety Migraine Elevated platelet count Surgical History Surgical History Status post hysteroscopic ablation of endometrium 2018 Status post splenectomy 2018 Status post tubal ligation 2016 History of D&C 2007 spontaneous Family History Family History Father Hypertension Family history of elevated blood lipids Sibling Family history of alcoholism Grandparent Acute myocardial infarction Cerebrovascular accident Family history of arthritis Other Family history of malignant neoplasm Social History Social History Smoking status: Never smoker Second hand tobacco smoke exposure: No Alcohol intake: current Drinks per week: 2 Substance use: never Substance use type: does not use Living arrangements: with family Occupation/Education: occupation Spiritual care concerns: No Anes - Eval Final PreProcedure Day of Procedure 04/01/24 10:44 Patient weight: overweight Heart: regular rate and rhythm Lungs: clear to auscultation Airway: Mallampati scale class II Neurological: alert and oriented Last oral intake: >/= 8 hours ASA classification: III Emergent: no Anesthetic plan: proceed Anesthesia type and monitoring: general GIVS and standard monitoring Results Review: All pre-operative results and documents have been reviewed as part of the pre-operative evaluation. Labs and note from heme/onc service reviewed. Pt w noted low GFR from 08/2023 and had been noted prev 2019, w subsequent improvement. Pt unaware of this value. Discussed w pt and spouse. She is to see her oncologist in 7 days. I have asked her to call and report this and have appropriate labs added to her panel prior to her visit w hematology. Discussed w Dr Valenzuela. Pt has persistent vag bleeding and in need to have this procedure done. Will hydrate and avoid any nephrotoxins to the best of our ability. Discussed w Marjan Michel CRNA. Informed Consent: The patient's anesthetic plan and its attendant risks and benefits were discussed with the patient/family/POA. Questions were solicited and answers provided to the satisfaction of the patient/family/POA.
[2024-04-01 11:12] VITALS: BP 110/72; PULSE 95; RESP 16; O2SAT 92
--- NOTE | 2024-04-01 11:12 | W.PM.PROC2 ---
Procedure Note - Detailed Date of Procedure 04/01/24 Pre-op Diagnosis menorrhagia Post-op Diagnosis Same Procedure Performed D&C hysteroscopy Surgeon Mei Valenzuela MD Anesthesia MAC Findings Uterus is retroverted and sounds to 9cm. The internal cervix is stenotic. The endometrium has evidence of prior ablation with no discrete lesions. Description of Procedure The patient was taken to the operating room and placed under anesthesia in the dorsal lithotomy position. She was prepped and draped in the usual sterile fashion. [place] speculum was placed in the vagina and the cervix grasped on the anterior lip with a tenaculum. The uterus is sounded to 9cm and noted to be retroverted. The hysteroscope was placed and through hydrodissection was able to enter the cavity. Cavity appears scarred with minimal endometrium. The hysteroscope was removed and the sharp curette attempted to be placed but would not pass the internal os. The cervix was serially dilated to a 6 Hegar. The sharp curette was then able to pass and a sharp curetting of the endometrium was taken until a good uterine cry was noted in all areas. Minimal material was obtained consistent with the visual appearance. All instruments are removed. Sponge, needle, and instrument counts are correct per the OR staff. The patient was awakened from anesthesia taken to recovery in stable condition. Estimated Blood Loss 5 Drains No Packing No Pathology Yes (Endometrial curettings) Complications No immediate complications Condition Stable Disposition PACU
[2024-04-01 11:40] VITALS: BP 113/78; PULSE 78; RESP 16
[2024-04-01 11:55] VITALS: BP 108/71; PULSE 76; RESP 16
[2024-04-01 12:15] VITALS: BP 110/71; PULSE 73; RESP 16
== END 2024-04-01 12:18 | disposition home or self-care (01) ==
PROVIDERS: PCP Family Medicine; Visit Provider Obstetrics & Gynecology Gynecology
PROC: 0U5B8ZZ Destruction of Endometrium, Via Natural or Artificial Opening Endoscopic (ICD-10-PCS; CPT 58563; principal; 2024-04-01 10:45)
DX: N88.2 Stricture and stenosis of cervix uteri (principal); D69.3 Immune thrombocytopenic purpura; F41.8 Other specified anxiety disorders; Z98.890 Other specified postprocedural states; Z98.51 Tubal ligation status; Z90.81 Acquired absence of spleen; Z98.891 History of uterine scar from previous surgery; Z80.9 Family history of malignant neoplasm, unspecified; Z82.49 Family history of ischemic heart disease and other diseases of the circulatory system
CPT/HCPCS: 58558; 88305; A9270; J1100; J2003; J2250; J2405; J2704; J3010; J7120

== ENCOUNTER 2024-04-08 10:47 | Outpatient (CLI) | payer BC, SELFPAY ==
[2024-04-08 11:02] LABS: Basophils Absolute Auto 0.1 K/mm3 (0.0-0.1); Basophils Percent Auto 0.5 % (0.2-1.2); Eosinophils Absolute Auto 0.3 K/mm3 (0-0.3); Eosinophils Percent Auto 2.4 % (0-4.4); Hematocrit 37.9 % (37.0-47.0); Hemoglobin 12.4 g/dL (12.0-15.0); Immature Granulocyte Absolute 0.03 K/mm3 (0.00-0.031); Immature Granulocyte Percent A 0.3 % (0-0.5); Lymphocytes Absolute Auto 3.88 K/mm3 (0.9-3.2); Mean Corpuscular HGB Conc 32.7 g/dl (32-36); Mean Corpuscular Volume 94.8 fl (80-100); Mean Platelet Volume 8.8 fl (7.4-10.4); Monocytes Absolute Auto 0.9 K/mm3 (0.1-0.6); Monocytes Percent Auto 7.9 % (2.6-8.5); Neutrophils Absolute Auto 5.7 K/mm3 (1.3-6.7); Neutrophils Percent Auto 52.9 % (45.5-73.1); Nucleated Red Blood Cells Perc 0.2 % (0.0-0.2); Platelet Count Result 540 k/mm3 (150-375); Red Cell Distribution Width 14.5 % (11.5-14.5); White Blood Count 10.8 K/mm3 (4.5-10.0)
[2024-04-08 11:07] LABS: Blood Urea Nitrogen 13 mg/dL (8-26); Carbon Dioxide 25 mmol/L (22-30); Chloride 103 mmol/L (98-109); Estimated Glomerular Filt Rate 38; Glucose 106 mg/dL (70-105); Ionized Calcium (POC) 1.16 mmol/L (1.11-1.31); Potassium 3.6 mmol/L (3.5-4.9); Sodium 140 mmol/L (138-146)
--- OUTSIDE RECORDS SUMMARY | 2024-04-11 12:53 | XMS_ITS | Continuity of Care Document ---
Author Organization [facility] Address [address] [place] [address] Phone Care Team Providers Care Equipment Engineering Technician Name Role Phone Unavailable Unavailable Unavailable Advance Directives Directive Yes / No Effective Date File Name No Information Encounters Encounter Description Practice Location Reason(s) For Visit Diagnoses Date Provider Providers Copied on Encounter [facility], [address], [place], [place], [id number], tel:[phone] [facility] No Information No Information Referring Provider: SUZIE Carvajal, [address], [place], [address]. tel:[phone] Family History Family Member Type Diagnosis Age At Onset No Information Payers Payer name Insurance type Covered alliance party ID Authoriza tiabhilash(s) [facility] [id number] CI [id number] Social History Type Description Quantity Date Captured Comments Sex Female Smoking Status No Information Chief Complaint And Reason For Visit No Information History Of Present Illness Encounter Date Complaint History Of Prese nt Illness No Information Instructions Date Instruction Additional Infor mation No Information Assessments Type Assessment Date No Information
--- OUTSIDE RECORDS SUMMARY | 2024-04-11 12:53 | XMS_ITS | Encounter Summary ---
Author Organization [facility] Address [address] [place] [address] Care Team Providers Care Flight Test Shop Mechanic Name Role Phone Chrystal Diggs MD Primary Care Provider [phone] Reason for Visit * Reason Comments Follow Up Encounter Details Date Type Department Care Team (Late st Contact Info) Description 04/08/2024 11:30 AM BLACK PICKLER Office Visit [facility] Oncology and Hematology - [place] [address] [facility] [address] [place] [address] Rick Friedman MD [address] [facility] [address] [place] [address] Primary thrombocytopenia (CMS/HCC) (Primary Dx) Social History Tobacco Use Types Packs/Day Years Used Date Smoking Tobacco: Never Tobacco Cessation:Counseling Given: Not Answered Alcohol Use Standard Drinks/Week Comments Yes 0 (1 standard drink = 0.6 oz pur e alcohol) occasional Comments No Sex and Gender Information Value Date Recorded Sex Assigned at Not on file Legal Sex Female 3:06 PM CDT Gender Identity Not on file Sexual Orientation Not on file documented as of this encounter Last Filed Vital Signs Vital Sign Reading Time Taken Comments Blood Pressure 119/80 04/08/2024 11:04 AM BLACK PICKLER Pulse 83 04/08/2024 11:04 AM BLACK PICKLER Temperature 36.5 ??C (97.7 ??F) 04/08/2024 11:[address] Respiratory Rate 17 04/08/2024 11:04 AM BLACK PICKLER Oxygen Saturation 98% 04/08/2024 11:04 AM BLACK PICKLER Inhaled Oxygen Concentration - - Weight 80.6 kg (177 lb 9.6 oz) 04/08/2024 11:04 AM BLACK PICKLER Height - - Body Mass Index 29.55 09/15/2021 11:01 AM CDT documented in this encounter Progress Notes * Rick Friedman MD - 04/08/2024 1:16 PM CST HEMATOLOGY / ONCOLOGY PROGRESS NOTE Patient Identification: Name: Chrystal Vera Age: 44 y.o. Sex: female : 1980 DIAGNOSIS History of ITP status post splenectomy on April 26, 2017 Secondary thrombocytosis status post splenectomy CURRENT TREATMENT Hydroxyurea 500 mg daily restarted in February 2023. TREATMENT HISTORY Steroid therapy for ITP IV IgG Rituxan January 2017 Nplate April 19, 2017 Splenectomy April 26, 2017 Hydroxyurea started August 25, 2019. Patient stopped taking hydroxyurea in August 2021 as she does not want to take the medicine anymore. SUBJECTIVE Patient came to the office for follow-up visit. She been taking hydroxyurea and tolerating it well.Denies any chest pain and shortness of breath. Weight and appetite stable. No other new complaints. Review of system Constitutional: denies fevers, sweats, denies any tiredness and fatigue, weight and appetite stableHEENT: denies sinus congestion, hearing or vision problems Respiratory: denies cough, dyspnea, wheeze Cardiovascular: denies chest pain, exertional chest pressure/discomfort, nausea, syncope, shortnessof breath GI: denies constipation, diarrhea, dsyphagia, reflux symptoms, vomiting, melena : denies dysuria, frequency, incontinence, urgency Integumentary system: no lymphadenopathy, sweats, flushing Musculoskeletal: denies: myalgia, arthralgia Neurological: denies blurry or disturbed vision, numbness/weakness, dizziness, headaches skin: No lumps, bumps or rashes. 12 point review of system was reviewed Objective: Vital signs in last 24 hours: As per nursing note Exam: General appearance: alert, cooperative, no distress, appears stated age Head: normocephalic, without obvious abnormality, atraumatic Eyes: conjunctivae/corneas clear, EOM's intact Ears: normal external ear canals AU Nose: Nares normal. Septum midline. Mucosa normal. No drainage or sinus tenderness Throat: Lips, mucosa, and tongue normal. Teeth and gums normal Neck: supple, symmetrical, trachea midline. Lungs: clear to auscultation bilaterally Heart: regular rate and rhythm, S1, S2 normal, no murmur, click, rub or gallop Abdomen: soft, non-tender. Bowel sounds normal. No masses, No organomegaly Extremities: extremities normal, atraumatic, no cyanosis or edema Skin: Skin color, texture, turgor normal. No rashes or lesions Lymph nodes: No lymphadenopathy Neuro: No obvious focal deficit Exam as above PATH LABS Labs from November 29 showed WBC 9.7 hemoglobin 12.4 platelets 651,000 creatinine 0.7. Labs from May 29 showed WBC 12.5 hemoglobin 12.5 platelet 696,000 creatinine 0.8. Labs from August for show WBC 10.5 hemoglobin 13.2 platelet 653,000 neutrophils 52% [id number] Labs from September 02 showed WBC 7.2 hemoglobin 12.9 platelet 640,000 creatinine 0.7. Labs from September 29 show WBC 9.2 hemoglobin 13 platelet 669,000. Labs from November 11 showed platelet 502,000 WBC 7.5 hemoglobin 12.9 Labs from January 30 showed WBC 7.1 hemoglobin 13.1 platelet 591,000 creatinine 3.4 Labs from May 01 showed WBC 7.9 hemoglobin 12.9 platelet 537,000 Labs from August 28 showed WBC 6.5 hemoglobin 13 platelet 591,000 creatinine 1.7 Labs from September 15 showed WBC 7.1 hemoglobin 13.3 platelet 547,000 creatinine 0.7 Labs from March 10 showed WBC 6.9 hemoglobin 12.5 platelet 595,000 creatinine 0.7 Labs from September 08 showed WBC 8.8 hemoglobin 12.9 platelets 604,000 creatinine 0.8 Labs from March 09 showed WBC 8.0 hemoglobin 13.5 platelets 6 84,000 creatinine 0.8 Labs from August 29 showed WBC 7.2 hemoglobin 13.1 platelet 523,000 creatinine 3.1 GFR 16 Labs from April 08 show WBC 10.8 hemoglobin 12.4 platelet 540,000 creatinine 1.5 GFR 38 Assessment: Plan: Patient Active Problem List Diagnosis Date Noted 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 Patient was started on hydroxyurea on August 25, 2019 due to migraineheadache and elevated platelet count. Patient stopped taking hydroxyurea in August 2021 as she she was tired of taking the medicine. Patient restarted hydroxyurea 500 mg daily in February 2023. Labs noted that showed stable platelet count. She has been taking hydroxyurea 500 mg once a day andtolerating it well. She will continue baby aspirin. No signs of thromboembolic events. Follow-up with me in 6 months. History of ITP status postsplenectomy. She is asymptomatic. Multifactorial anemia. Resolved. Follow-up in 6 months. 04/08/2024 Rick Friedman MD K PICKLER documented in this encounter Plan of Treatment Upcoming Encounters Date Type Department Care Team (Late st Contact Info) Description 10/07/2024 11:00 AM CDT Office Visit [facility] Oncology and Hematology [facility] [address] [facility] [address] [place] [address] Rick Friedman MD [address] [facility] [address] [place] [address] Scheduled Orders Name Type Priority Associated Diagnoses Orde r Schedule CBC WITH DIFFERENTIAL Lab Stat Primary thrombocytopenia (CMS/HCC) Expected: 10/06/2024, Expires: 04/08/2025 BASIC METABOLIC PANEL Lab Stat Primary thrombocytopenia (CMS/HCC) Expected: 10/06/2024, Expires: 04/08/2025 documented as of this encounter Visit Diagnoses Diagnosis Primary thrombocytopenia (CMS/HCC)- Primary Primary thrombocytopenia, unspecified documented in this encounter Care Teams Flight Test Shop Mechanic Relationship Specialty Start Date End Date Chrystal Diggs MD [address] [place] [address] PCP - General Family Practice 11/21/14 documented as of this encounter
--- OUTSIDE RECORDS SUMMARY | 2024-04-11 12:53 | XMS_ITS | Clinical Summary ---
Author Organization [facility] Address [address] [place] [address] Care Team Providers Care Spaghetti Press Helper Name Role Phone Chrystal Diggs MD Primary Care Provider [phone] Allergies No known active allergies Medications hydroxyurea (HYDREA) 500 mg capsule Take 1 Capsule (500 mg) by mouth daily. 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 Oncology and [facility] [address] [place] [address] Rick Friedman MD 04/08/2024 11:30 AM WELDING INSTRUCTOR Office Visit [facility] Oncology [facility] [address] [place] [address] Rick Friedman MD Primary thrombocytopenia (CMS/HCC) (Primary Dx) 02/20/2024 External Device Data STL ABSTRACTION Provider, Abstract 01/23/2024 External Device Data STL ABSTRACTION Provider, Abstract from Last 3 Months Family History Medical History Relation Name Comments Healthy Brother High Cholesterol Father Hypertension Father No Known Problems Mother Healthy Sister 1 Healthy Sister 2 Relation Name Status Comments Brother Alive Father Alive Mother Alive Sister 1 Alive Sister 2 Alive Social History Tobacco Use Types Packs/Day Years [...] on file Sexual Orientation Not on file Last Filed Vital Signs Vital Sign Reading Time Taken Comments Blood Pressure 119/80 04/08/2024 11:04 AM WELDING INSTRUCTOR Pulse 83 04/08/2024 11:04 AM WELDING INSTRUCTOR Temperature 36.5 ??C (97.7 ??F) 04/08/2024 11:[address] Respiratory Rate 17 04/08/2024 11:04 AM WELDING INSTRUCTOR Oxygen Saturation 98% 04/08/2024 11:04 AM WELDING INSTRUCTOR Inhaled Oxygen Concentration - - Weight 80.6 kg (177 lb 9.6 oz) 04/08/2024 11:04 AM WELDING INSTRUCTOR Height 165.1 cm (5' 5 ) 09/15/2021 11:01 AM CDT Body Mass Index 29.55 09/15/2021 11:01 AM CDT Plan of Treatment Upcoming Encounters Date Type Department Care Team (Late st Contact Info) Description 10/07/2024 11:00 AM CDT Office Visit [facility] Oncology and Hematology [facility] [address] [facility] [address] [place] [address] Rick Friedman MD [address] [facility] [address] [place] [address] Health Maintenance Due Date Last Done Comments Pre-Diabetes and Diabetes Screening 1980 DTAP/TDAP/TD VACCINES (1 - Tdap) 01/11/1999 HEPATITIS B VACCINES (1 of 3 - 19+ 3-dose series) 01/11/1999 CERVICAL CANCER SCREENING 01/11/2010 BREAST CANCER SCREENING 2020 INFLUENZA VACCINE (#1) 2023 Preventative Visit- Commercial 03/20/2024 HPV VACCINES Aged Out No longer eligi ble based on patient's age to complete this topic Procedures Procedure Name Priority Date/Time Associated Diagnosis Comments BASIC METABOLIC PANEL Routine 04/08/2024 1:35 PM WELDING INSTRUCTOR CBC WITH DIFFERENTIAL Routine 04/08/2024 1:30 PM WELDING INSTRUCTOR from Last 3 Months Results * BASIC METABOLIC PANEL (04/08/2024 1:35 PM WELDING INSTRUCTOR) Blood Rick Friedman MD CHEMISTRY ORDERABLES Final Resu lt * CBC WITH DIFFERENTIAL (04/08/2024 1:30 PM WELDING INSTRUCTOR) Blood Rick Friedman MD HEMATOLOGY ORDERABLES Final Res ult from Last 3 Months Insurance Care Teams Spaghetti Press Helper Relationship Specialty Start Date End Date Chrystal Diggs MD [address] [place] [address] PCP - General Family Practice 11/21/14
== END 2024-04-08 10:48 | disposition home or self-care (01) ==
LOC: ANHLAB 10:48
PROVIDERS: PCP Family Medicine; Visit Provider Internal Medicine Hematology & Oncology
DX: D69.49 Other primary thrombocytopenia (principal)
CPT/HCPCS: 36415; 80047; 85025

== ENCOUNTER 2024-10-07 10:20 | Outpatient (CLI) | payer BC, SELFPAY ==
--- OUTSIDE RECORDS SUMMARY | 2024-10-07 10:35 | XMS_ITS | Clinical Summary ---
Author Organization [facility] Address [address] [place] [address] Care Team Providers Care [employer] Name Role Phone Chrystal Diggs MD Primary Care Provider [phone] Allergies No known active allergies Medications hydroxyurea (HYDREA) 500 mg capsule Take 1 Capsule (500 mg) by mouth daily. 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 Encounters Date Type Department Care Team Description 10/02/2024 External Device Data STL ABSTRACTION Provider, Abstract 10/01/2024 External Device Data STL ABSTRACTION Provider, Abstract 09/03/2024 External Device Data STL ABSTRACTION Provider, Abstract 08/20/2024 External Device Data STL ABSTRACTION Provider, Abstract 08/08/2024 External Device Data STL ABSTRACTION Provider, Abstract 08/06/2024 External Device Data STL ABSTRACTION Provider, Abstract 07/08/2024 Refill [facility] Oncology and Hematology - [place] [address] [address] Rick Friedman MD from Last 3 Months Family History Medical [...] Comments Blood Pressure 119/80 04/08/2024 11:04 AM EMERGENCY RESPONSE COORDINATOR Pulse 83 04/08/2024 11:04 AM EMERGENCY RESPONSE COORDINATOR Temperature 36.5 C (97.7 F) 04/08/2024 11:04 AM EMERGENCY RESPONSE COORDINATOR Respiratory Rate 17 04/08/2024 11:04 AM EMERGENCY RESPONSE COORDINATOR Oxygen Saturation 98% 04/08/2024 11:04 AM EMERGENCY RESPONSE COORDINATOR Inhaled Oxygen Concentration - - Weight 80.6 kg (177 lb 9.6 oz) 04/08/2024 11:04 AM EMERGENCY RESPONSE COORDINATOR Height 165.1 cm (5' 5) 09/15/2021 11:01 AM CDT Body Mass Index 29.55 09/15/2021 11:01 AM CDT Plan of Treatment Upcoming Encounters Date Type Department Care Team (Late st Contact Info) Description 10/07/2024 11:00 AM CDT Office Visit [facility] Oncology and Hematology - [place] [address] [place] [address] [facility] [address] [place] [address] Rick Friedman MD [address] [facility] [address] [place] [address] Arrived Health Maintenance Due Date Last Done Comments Pre-Diabetes and Diabetes Screening 1980 HPV VACCINES (1 - 3-dose series) 01/11/1995 DTAP/TDAP/TD VACCINES (1 - Tdap) 01/11/1999 HEPATITIS B VACCINES (1 of 3 - 19+ 3-dose series) 12/19 HPV/Cotest (21-29) 01/11/2001 CERVICAL CANCER SCREENING 01/11/2010 HPV/Cotest (30-65) 01/11/2010 PAP SMEAR 01/11/2010 BREAST CANCER SCREENING 2020 INFLUENZA VACCINE (#1) 2024 Insurance [employer]BS OUT OF STATE [facility] OUT OF STATE Care Teams [employer] Relationship Specialty Start Date End Date Chrystal Diggs MD [address] [place] [id number] PCP - General Family Practice 11/21/14
[2024-10-07 10:43] LABS: Hematocrit 39.4 % (37.0-47.0); Hemoglobin 13.0 g/dL (12.0-15.0); Immature Granulocyte Percent A 0.1 % (0-0.5); Lymphocytes Absolute Auto 3.05 K/mm3 (0.9-3.2); Mean Corpuscular HGB Conc 33.0 g/dl (32-36); Mean Corpuscular Hemoglobin 31.3 pg (26-34); Mean Corpuscular Volume 94.9 fl (80-100); Nucleated Red Blood Cells Absolute Auto 0.020 K/mm3 (0.0-0.012); Nucleated Red Blood Cells Perc 0.3 % (0.0-0.2); Platelet Count Result 620 k/mm3 (150-375); Red Blood Count 4.15 M/mm3 (4.2-5.4); White Blood Count 7.6 K/mm3 (4.5-10.0)
[2024-10-07 10:45] LABS: Blood Urea Nitrogen 11 mg/dL (8-26); Carbon Dioxide 24 mmol/L (22-30); Chloride 102 mmol/L (98-109); Estimated Glomerular Filt Rate 41; Glucose 113 mg/dL (70-105); Ionized Calcium (POC) 1.23 mmol/L (1.11-1.31); Potassium 4.0 mmol/L (3.5-4.9); Sodium 138 mmol/L (138-146)
== END 2024-10-07 10:21 | disposition home or self-care (01) ==
LOC: ANHLAB 10:20
PROVIDERS: PCP Family Medicine; Visit Provider Internal Medicine Hematology & Oncology
DX: D69.49 Other primary thrombocytopenia (principal)
CPT/HCPCS: 36415; 80047; 85025